=== PATIENT | male | born 1945 | race Caucasian/White ===

== ENCOUNTER 2017-08-01 11:26 | Emergency (ER) | payer MEDICARE ==
[~2017-08-01] VITALS: Ht 172.7 cm; Wt 91.2 kg
[~2017-08-01 11:26] MED LIST: GLUC-12 PO; LOSA1TAB19 PO; MULT1TAB52 PO; OMEG1CAP27 PO
[2017-08-01] MEDS ORDERED: ONDANSETRON PF 4 MG/2 ML VIAL. IV ONE (12:00)
[2017-08-01] MEDS ORDERED: fentaNYL PF VIAL 100 MCG/2 ML VIAL IV ONE (12:00)
--- NOTE | 2017-08-01 12:11 | PHYS DOC ---
Past Medical History Past Medical History: DVT, Hypertension, Other Additional Past Medical Histor: small intestine blockage Past Surgical History: Other Additional Past Surgical Histo: intestinal surgery Alcohol Use: Occasionally Drug Use: None Adult General Chief Complaint Chief Complaint: SHOULDER INJURY [facility] HPI Patient is a 72 year old male presents to the emergency department with complaints of left shoulder pain. Patient states that yesterday when he awakened he had left shoulder pain. He states he had limited range of motion secondary to pain. He believes he may have twisted his shoulder in his sleep. The patient was evaluated in his primary care provider's office today and told to report to the emergency Department for possible dislocation. Patient arrives to the emergency department and a sling, left upper extremity. He states his pain is a 10 on a scale 1-10. He has no other complaints upon arrival. Review of Systems Review of Systems Constitutional: Denies fever or chills [] Eyes: Denies change in visual acuity, redness, or eye pain [] HENT: Denies nasal congestion or sore throat [] Respiratory: Denies cough or shortness of breath [] Cardiovascular: No additional information not addressed in HPI [] GI: Denies abdominal pain, nausea, vomiting, bloody stools or diarrhea [] : Denies dysuria or hematuria [] Musculoskeletal: Left shoulder pain Integument: Denies rash or skin lesions [] Neurologic: Denies headache, focal weakness or sensory changes [] Endocrine: Denies polyuria or polydipsia [] All other systems were reviewed and found to be within normal limits, except as documented in this note. Current Medications Current Medications Current Medications Medications (Trade) Dose Ordered Sig/Mikala Start Time Stop Time Status Last Admin Dose Admin Fentanyl Citrate (Fentanyl 2ml Vial) 50 mcg 1X ONCE 08/01/17 12:00 08/01/17 12:01 DC 08/01/17 12:18 50 MCG Ondansetron HCl (Zofran) 4 mg 1X ONCE 08/01/17 12:00 08/01/17 12:01 DC 08/01/17 12:14 4 MG Allergies Allergies Allergies Coded Allergies Type Severity Reaction Last Updated Verified sorbitol Allergy Intermediate 06/10/17 Yes Physical Exam Physical Exam Constitutional: Well developed, well nourished, no acute distress, non-toxic appearance. [] Neck: Normal range of motion, no cervical or midline tenderness, supple, no stridor. [] Cardiovascular:Heart rate regular rhythm, no murmur [] Lungs & Thorax: Bilateral breath sounds clear to auscultation [] Skin: Warm, dry, no erythema, no rash. [] Back: No tenderness, no CVA tenderness. [] Extremities: Left upper extremity, diffusely tender to palpate over the anterior shoulder. The patient will allow for abduction to 45, he will allow for external rotation secondary to pain. Neurovascular intact distally. Neurologic: Alert and oriented X 3, normal motor function, normal sensory function, no focal deficits noted. [] Psychologic: Affect normal, judgement normal, mood normal. [] Current Patient Data Vital Signs Vital Signs Date Time Temp Pulse Resp B/P (MAP) Pulse Ox O2 Delivery O2 Flow Rate FiO2 08/01/17 12:18 20 Room Air 08/01/17 11:40 97.9 92 186/103 (130) 95 97.9 EKG EKG [] Radiology/Procedures Radiology/Procedures Shoulder x-ray reviewed by Dr. Rodriguez, radiologist. Impression no acute osseous abnormality is evident.[] Course & Med Decision Making Course & Med Decision Making Pertinent Labs and Imaging studies reviewed. (See chart for details) Post fentanyl evaluation, patient will allow for abduction to 90, he will allow for internal/external rotation without apparent increase in pain. Neurovascular intact distally. []Patient will be discharged with use of sling, moist heat, anti-inflammatory medications. He is advised follow-up with his primary care provider for further evaluation. Dragon Disclaimer Dragon Disclaimer This electronic medical record was generated, in whole or in part, using a voice recognition dictation system. Departure Departure Impression: Primary Impression: Left shoulder pain Disposition: 01 HOME, SELF-CARE Condition: STABLE Referrals: JACOB STEPHENS MD (PCP) Patient Instructions: Shoulder Pain Additional Instructions: Sling for comfort. Ibuprofen 400 mg every 8 hours as needed for pain. Moist heat to the affected area. Follow-up with your primary care provider in one to 2 days, sooner if problems arise. Scripts Acetaminophen With Codeine (TYLENOL WITH CODEINE #3 TABLET) 1 Each Tablet 1 TAB PO PRN Q6HRS Y for PAIN, #12 TAB Prov: ASIF ORTEGA APRN 08/01/17 Problem Qualifiers Primary Impression: Left shoulder pain Chronicity: acute Qualified Codes: M25.512 - Pain in left shoulder ASIF ORTEGA APRN Aug 01, 2017 12:11
--- NOTE | 2017-08-01 12:30 | RAD ---
Three-view left shoulder study Indications: Left shoulder pain that started last night. Findings: No acute fracture or dislocation or osteolytic process is seen. No AC joint separation is seen. IMPRESSION: No acute osseous abnormality is evident.
[2017-08-01] MEDS ORDERED: ACET-704 PO (12:44)
[2017-08-01 13:03] VITALS: BP 146/80
== END 2017-08-01 13:15 | disposition home or self-care (01) ==
LOC: ER 11:26
DX: M25.512 Pain in left shoulder (principal); I10 Essential (primary) hypertension; Z86.718 Personal history of other venous thrombosis and embolism; Z88.8 Allergy status to other drugs, medicaments and biological substances
CPT/HCPCS: 73030; 96374; 96375; 99284; J2405; J3010